=== PATIENT | female | born 1985 | race Caucasian/White ===

== ENCOUNTER 2017-01-25 16:44 | Emergency (ER) | payer OTHER ==
[2017-01-25 16:53] VITALS: BP 124/68; PULSE 92; TEMP 98.4; BMI 27.3
--- NOTE | 2017-01-25 16:59 | PDOC ---
History of Present Illness <Sen Allen - Last Filed: 01/25/17 16:59> - General History Source: Patient Exam Limitations: No Limitations - History of Present Illness Initial Comments: 01/25/17 17:11 The patient is a 31 yo F with no PMHx who presents to the ED for further evaluation of abdominal pain. Patient reports diffuse abdominal pain that is exacerbated with movement, inspiration and conversation. Patient reports being seen at [facility] today for the same complaints and was diagnosed with Viral gastroenteritis. Since then, the patient has been experiencing worsening pain with 1 episode of associated vomiting (nonbilious, nonbloody) and nausea. Patient presents to [facility] ED for re-evaluation. Note, patient had UA and CAT scan however is unsure of the results. Patient denies any abdominal sx. Patient denies any social hx. Allergies: Penicillins <Macie Zavala - Last Filed: 01/25/17 17:48> <Flaquita Cota - Last Filed: 01/25/17 21:03> - General Chief Complaint: Pain Stated Complaint: abdominal pain Time Seen by Provider: 01/25/17 16:59 Past History - Past Medical History COPD: No Thyroid Disease: No - Suicide/Smoking/Psychosocial Hx Smoking History: Never smoked Have you smoked in the past 12 months: No Information on smoking cessation initiated: No Hx Alcohol Use: No Drug/Substance Use Hx: No Substance Use Type: None <Sen Allen - Last Filed: 01/25/17 16:59> <Macie Zavala - Last Filed: 01/25/17 17:48> <Flaquita Cota - Last Filed: 01/25/17 21:03> - Past Medical History Allergies/Adverse Reactions: Allergies Allergy/AdvReac Type Severity Reaction Status Date / Time Penicillins Allergy Verified 01/25/17 16:50 Home Medications: Ambulatory Orders NK [No Known Home Medication] 01/25/17 Review of Systems - Review of Systems Able to Perform ROS?: Yes Comments:: 01/25/17 17:18 GENERAL/CONSTITUTIONAL: No fever or chills. No weakness. HEAD, EYES, EARS, NOSE AND THROAT: No change in vision. No ear pain or discharge. No sore throat. CARDIOVASCULAR: No chest pain or shortness of breath. RESPIRATORY: No cough, wheezing, or hemoptysis. GASTROINTESTINAL: +abdominal pain ,nausea, vomiting. No diarrhea or constipation. GENITOURINARY: No dysuria, frequency, or change in urination. MUSCULOSKELETAL: No joint or muscle swelling or pain. No neck or back pain. SKIN: No rash NEUROLOGIC: No headache, vertigo, loss of consciousness, or change in strength/ sensation. ENDOCRINE: No increased thirst. No abnormal weight change. HEMATOLOGIC/LYMPHATIC: No anemia, easy bleeding, or history of blood clots. ALLERGIC/IMMUNOLOGIC: No hives or skin allergy. <Macie Zavala - Last Filed: 01/25/17 17:48> *Physical Exam - Vital Signs Last Vital Signs Temp Pulse Resp BP Pulse Ox 98.4 F 92 H 18 124/68 100 01/25/17 16:50 01/25/17 16:50 01/25/17 16:50 01/25/17 16:50 01/25/17 16:50 <Sen Allen - Last Filed: 01/25/17 16:59> - Vital Signs Last Vital Signs Temp Pulse Resp BP Pulse Ox 98.4 F 92 H 18 124/68 100 01/25/17 16:50 01/25/17 16:50 01/25/17 16:50 01/25/17 16:50 01/25/17 16:50 - Physical Exam Comments: 01/25/17 17:19 GENERAL: Awake, alert, and fully oriented, in no acute distress HEAD: No signs of trauma EYES: PERRLA, EOMI, sclera anicteric, conjunctiva clear ENT: Auricles normal inspection, hearing grossly normal, nares patent, oropharynx clear without exudates. Moist mucosa NECK: Normal ROM, supple, no lymphadenopathy, JVD, or masses LUNGS: Breath sounds equal, clear to auscultation bilaterally. No wheezes, and no crackles HEART: Regular rate and rhythm, normal S1 and S2, no murmurs, rubs or gallops ABDOMEN: +diffusely tender. Soft, nontender, normoactive bowel sounds. No guarding, no rebound. No masses EXTREMITIES: Normal range of motion, no edema. No clubbing or cyanosis. No cords, erythema, or tenderness NEUROLOGICAL: Cranial nerves II through XII grossly intact. Normal speech, normal gait SKIN: Warm, Dry, normal turgor, no rashes or lesions noted. <Macie Zavala - Last Filed: 01/25/17 17:48> - Vital Signs Last Vital Signs Temp Pulse Resp BP Pulse Ox 98.4 F 92 H 18 124/68 100 01/25/17 16:50 01/25/17 16:50 01/25/17 16:50 01/25/17 16:50 01/25/17 16:50 <Flaquita Cota - Last Filed: 01/25/17 21:03> ED Treatment Course - LABORATORY CBC & Chemistry Diagram: 01/25/17 17:10 01/25/17 17:10 - ADDITIONAL ORDERS Additional order review: Laboratory Results 01/25/17 01/25/17 01/25/17 17:10 17:10 17:10 PT with INR INR Sodium Potassium Chloride Carbon Dioxide Anion Gap BUN Creatinine Creat Clearance w eGFR Random Glucose Lactic Acid Calcium Total Bilirubin AST ALT Alkaline Phosphatase Total Protein Albumin Lipase 159 Serum , Qual Urine Color Yellow Urine Appearance Turbid Urine pH 5.0 Ur Specific [place] 1.051 H Urine Protein Negative Urine Glucose (UA) 1+ H Urine Ketones 2+ H Urine Blood Negative Urine Nitrite Negative Urine Bilirubin Negative Urine Urobilinogen Negative Blood Type O POSITIVE Antibody Screen Negative 01/25/17 01/25/17 01/25/17 17:10 17:10 17:10 PT with INR INR Sodium 137 Potassium 4.3 Chloride 106 Carbon Dioxide 22 Anion Gap 9 BUN 8 Creatinine 0.5 L Creat Clearance w eGFR > 60 Random Glucose 130 H Lactic Acid 1.9 Calcium 8.8 Total Bilirubin 0.3 AST 13 L ALT 30 Alkaline Phosphatase 108 Total Protein 7.2 Albumin 3.4 Lipase Serum , Qual Negative Urine Color Urine Appearance Urine pH Ur Specific [place] Urine Protein Urine Glucose (UA) Urine Ketones Urine Blood Urine Nitrite Urine Bilirubin Urine Urobilinogen Blood Type Antibody Screen 01/25/17 17:10 PT with INR 12.40 H INR 1.10 Sodium Potassium Chloride Carbon Dioxide Anion Gap BUN Creatinine Creat Clearance w eGFR Random Glucose Lactic Acid Calcium Total Bilirubin AST ALT Alkaline Phosphatase Total Protein Albumin Lipase Serum , Qual Urine Color Urine Appearance Urine pH Ur Specific [place] Urine Protein Urine Glucose (UA) Urine Ketones Urine Blood Urine Nitrite Urine Bilirubin Urine Urobilinogen Blood Type Antibody Screen 01/25/17 17:10 RBC 5.02 MCV 82.4 MCHC 33.6 RDW 13.1 MPV 8.4 Neutrophils % No Result Required. Lymphocytes % No Result Required. - Medications Given in the ED: ED Medications Discontinued Medications Generic Name Dose Route Start Last Admin Trade Name Devin PRN Reason Stop Dose Admin Sodium Chloride 2,000 mls @ 1,000 mls/hr 01/25/17 17:12 01/25/17 17:53 Normal Saline - IV 01/25/17 19:11 1,000 mls/hr ASDIR STA Administration Morphine Sulfate 2 mg 01/25/17 17:12 01/25/17 17:52 Morphine Injection - IVPUSH 01/25/17 17:13 2 mg ONCE ONE Administration Ondansetron HCl 4 mg 01/25/17 17:12 01/25/17 17:52 Zofran Injection IVPUSH 01/25/17 17:13 4 mg ONCE ONE Administration <Flaquita Cota - Last Filed: 01/25/17 21:03> Medical Decision Making - Medical Decision Making 01/25/17 17:49 CTAP w.o Contrast obtained from [facility] Impression: Multiple fluid-filled small bowel loops seen in the L mid to lower quadrant abdomen, which may represent a nonspecific gastroenteritis. No CT eidence of acute appedicitis, pancreatitis, cholecystitis, pyelonephritis, colitis, diverticulitis, focal fluid collection or bowel obstruction. L ovarian cyst which may represent an involving cyst. Non specific small hepatic lesion as described above, which may represent a small flash filling hemangioma. Read by: Robert Ellis MD. <Macie Zavala - Last Filed: 01/25/17 17:48> *DC/Admit/Observation/Transfer - Attestations Physician Attestion: 01/25/17 16:59 I, Dr. Sen Allen, attest that this document has been prepared under my direction and personally reviewed by me in its entirety. I further attest, that it accurately reflects all work, treatment, procedures and medical decision -making performed by me. <Sen Allen - Last Filed: 01/25/17 16:59> - Attestations Scribe Attestion: 01/25/17 17:19 Documentation prepared by Macie Zavala, acting as medical library assistant for Sen Allen MD <Macie Zavala - Last Filed: 01/25/17 17:48> - Discharge Dispostion Admit: No <Flaquita Cota - Last Filed: 01/25/17 21:03> Diagnosis at time of Disposition: Dehydration, Viral gastroenteritis - Discharge Dispostion Disposition: HOME Condition at time of disposition: Improved - Patient Instructions Printed Discharge Instructions: Viral Gastroenteritis
[2017-01-25] MEDS ORDERED: SODIUM CHLORIDE 2,000 ML IV STA (17:12)
[2017-01-25] MEDS ORDERED: ONDANSETRON 4 MG/2 ML VIAL IVPUSH ONE (17:12)
[2017-01-25] MEDS ORDERED: morphine CARPU-JECT 2 MG/1 ML DISP.SYRIN IVPUSH ONE (17:12)
[2017-01-25] MEDS ORDERED: ONDANSETRON 4 MG/2 ML VIAL ONE (17:24)
[2017-01-25] MEDS ORDERED: morphine SULFATE 4 MG/ML VIAL ONE (17:24)
[2017-01-25 17:56] LABS: MCH 27.7 pg (25.7-33.7); MCHC 33.6 g/dl (32.0-36.0); MEAN CELL VOLUME 82.4 fl (80-96); MEAN PLT VOLUME 8.4 fl (7.5-11.1); PLATELET COUNT 204 K/MM3 (134-434); RDW 13.1 % (11.6-15.6); WHITE BLOOD COUNT 8.9 K/mm3 (4.0-10.0)
[2017-01-25 17:58] LABS: URINE APPEARANCE TURBID; URINE BILIRUBIN NEGATIVE (NEGATIVE); URINE BLOOD NEGATIVE (NEGATIVE); URINE COLOR YELLOW; URINE GLUCOSE (UA) 1+ (NEGATIVE); URINE KETONE 2+ (NEGATIVE); URINE LEUK ESTERASE NEGATIVE (NEGATIVE); URINE NITRITE NEGATIVE (NEGATIVE); URINE PROTEIN NEGATIVE (NEGATIVE); URINE UROBILINOGEN NEGATIVE mg/dL (0.2-1.0)
[2017-01-25 18:09] LABS: INR 1.1 (0.82-1.09); PROTHROMBIN TIME (PATIENT) 12.4 SEC (9.98-11.88)
[2017-01-25 18:20] LABS: ALBUMIN 3.4 g/dl (3.4-5.0); ALK PHOS 108 U/L (45-117); ANION GAP 9 (8-16); BILIRUBIN,TOTAL 0.3 mg/dL (0.2-1.0); CALCIUM 8.8 mg/dL (8.5-10.1); CO2 22 mmol/L (21-32); CREATININE 0.5 mg/dL (0.55-1.02); GLUCOSE,RANDOM 130 mg/dL (74-106); SGOT/AST 13 U/L (15-37); SGPT/ALT 30 U/L (12-78); TOT PROT 7.2 g/dl (6.4-8.2)
[2017-01-25 19:05] LABS: REACTIVE LYMPHOCYTES 2 % (0-80); TOTAL CELLS COUNTED 100
[2017-01-25 19:06] LABS: PLATELET ESTIMATE ADEQUATE
[2017-01-25 21:32] LABS: URINE LEUK ESTERASE NEGATIVE (NEGATIVE)
== END 2017-01-25 21:17 | disposition home or self-care (01) ==
LOC: JER 16:44
PROC: 3E033NZ Introduction of Analgesics, Hypnotics, Sedatives into Peripheral Vein, Percutaneous Approach (ICD-10-PCS; principal; 2017-01-25)
PROC: 3E033GC Introduction of Other Therapeutic Substance into Peripheral Vein, Percutaneous Approach (ICD-10-PCS; 2017-01-25)
PROC: 3E0337Z Introduction of Electrolytic and Water Balance Substance into Peripheral Vein, Percutaneous Approach (ICD-10-PCS; 2017-01-25)
DX: E86.0 Dehydration (principal); A08.4 Viral intestinal infection, unspecified
CPT/HCPCS: 36415; 80053; 81003; 83605; 83690; 84703; 85025; 85610; 86850; 86900; 86901; 87040; 87086; 99283-25